=== PATIENT | male | born 1950 | race Caucasian/White ===

== ENCOUNTER 2019-03-20 11:12 | Emergency (ER) | payer SELFPAY ==
--- NOTE | 2019-03-20 11:29 | ER Document Report ---
ED Medical Screen (RME) - General Chief Complaint: Fall Injury Stated Complaint: RIB INJURY Time Seen by Provider: 03/20/19 11:22 Mode of Arrival: Medic Information source: Patient Notes: Patient is a 68-year-old male presented to the emergency department with bilateral anterior rib pain. Patient reports he fell multiple times yesterday after drinking excessive amounts of alcohol. Patient reports he has already started drinking alcohol today. He denies any neck pain. He does have an abrasion to his forehead he states this occurred when he fell yesterday. He reports pain in his ribs is worse with taking any deep breaths. He does have good air movement bilaterally. Order was placed for a cervical collar, patient refused this. Exam: Lung sounds clear and equal bilaterally. Abrasion noted over left eyebrow at the scalp line. No cervical vertebral tenderness. I have greeted and performed a rapid initial assessment of this patient. A comprehensive ED assessment and evaluation of the patient, analysis of test results and completion of the medical decision making process will be conducted by additional ED providers. I have specifically instructed the patient or family members with the patient to immediately return to any nursing staff should anything change in the patient's condition or with their chief complaint. This medical record was dictated with voice recognizing software. There may be grammatical, syntax errors that are unintended. TRAVEL OUTSIDE OF THE [place] IN LAST 30 DAYS: No - Related Data Allergies/Adverse Reactions: No Known Allergies Allergy (Verified 03/20/19 11:14) Past Medical History - Immunizations Immunizations up to date: Yes Hx Diphtheria, Pertussis, Tetanus Vaccination: Yes Physical Exam - Vital signs Vitals: Temp Pulse Resp BP Pulse Ox 97.6 F 87 16 126/96 H 96 03/20/19 11:14 03/20/19 11:14 03/20/19 11:14 03/20/19 11:14 03/20/19 11:14 Course - Vital Signs Vital signs: Temp Pulse Resp BP Pulse Ox 97.6 F 87 16 126/96 H 96 03/20/19 11:14 03/20/19 11:14 03/20/19 11:14 03/20/19 11:14 03/20/19 11:14
--- NOTE | 2019-03-20 12:20 | RADIOLOGY REPORT (SQ) ---
EXAM DESCRIPTION: RIBS BILATERAL W/PA CXR COMPLETED DATE/TIME: 03/20/2019 12:05 pm REASON FOR STUDY: multiple falls COMPARISON: None. TECHNIQUE: Frontal view of the chest and additional views of the right and left ribs acquired. NUMBER OF VIEWS: 9 view. LIMITATIONS: None. FINDINGS: FRONTAL CXR: No pneumothorax. No pleural effusion. No atelectasis or infiltrates. RIBS: There are mildly displaced subacute fractures of left ribs 6th through 8th laterally. There ar e chronic nondisplaced fracture of right ribs 9 and 10 posteriorly. There are subacute mildly displa nirali fractures of right ribs 5, 7, 8, and 9 laterally. OTHER: Degenerative changes are seen of the thoracic spine without wedge compression deformity. IMPRESSION: Subacute to chronic rib fractures bilaterally as detailed above. No clearly acute displ aced rib fracture is visualized. No pneumothorax. COMMENT: SITE OF TRAUMA/COMPLAINT MARKED/STAMP COMPLETED: No TECHNICAL DOCUMENTATION: JOB ID: [id number] [employer]- All Rights Reserved Reading location - IP/workstation name: [email or web address]
--- NOTE | 2019-03-20 12:29 | RADIOLOGY REPORT (SQ) ---
EXAM DESCRIPTION: CT HEAD WITHOUT COMPLETED DATE/TIME: 03/20/2019 12:19 pm REASON FOR STUDY: multiple falls COMPARISON: 03/26/2015 TECHNIQUE: Axial images acquired through the brain without intravenous contrast. Images reviewed wi th bone, brain and subdural windows. Additional sagittal and coronal reconstructions were generated. Images stored on PACS. All CT scanners at this facility use dose modulation, iterative reconstruction, and/or weight based d osing when appropriate to reduce radiation dose to as low as reasonably achievable (ALARA). [facility]: Dose Right [facility]: CareDose [facility]: Dose Right [facility]: Teradose 4D [facility]: [employer] RADIATION DOSE: CT Rad equipment meets quality standard of care and radiation dose reduction techniq ues were employed. CTDIvol: 53.2 mGy. DLP: 1017 mGy-cm.mGy. LIMITATIONS: None. FINDINGS: VENTRICLES: Prominent. CEREBRUM: No masses. No hemorrhage. No midline shift. Areas of low density in the white matter mos t likely due to chronic micro-vascular ischemic change. No evidence for acute infarction. CEREBELLUM: No masses. No hemorrhage. No alteration of density. No evidence for acute infarction. EXTRAAXIAL SPACES: Age-related involutional change. No fluid collections. No masses. ORBITS AND GLOBE: No intra- or extraconal masses. Normal contour of globe without masses. CALVARIUM: No fracture. PARANASAL SINUSES: Mild mucosal thickening is seen of the left maxillary sinus. The paranasal sinuse s and mastoid air cells are otherwise clear. SOFT TISSUES: No mass or hematoma. OTHER: No other significant finding. IMPRESSION: No evidence of calvarial injury or intracranial hemorrhage. Background of chronic micro vascular and age-related involutional changes. EVIDENCE OF ACUTE STROKE: NO. TECHNICAL DOCUMENTATION: JOB ID: [id number] Quality ID # [id number]: Final reports with documentation of one or more dose reduction techniques (e.g., Au tomated exposure control, adjustment of the mA and/or kV according to patient size, use of iterative reconstruction technique) 2010 [employer]- All Rights Reserved Reading location - IP/workstation name: [email or web address]
--- NOTE | 2019-03-20 12:48 | RADIOLOGY REPORT (SQ) ---
EXAM DESCRIPTION: CT CERVICAL SPINE WITHOUT COMPLETED DATE/TIME: 03/20/2019 12:19 pm REASON FOR STUDY: multiple falls COMPARISON: 03/26/2015 TECHNIQUE: Axial images acquired through the cervical spine without intravenous contrast. Images re viewed with lung, soft tissue and bone windows. Reconstructed coronal and sagittal MPR images review ed. Images stored on PACS. All CT scanners at this facility use dose modulation, iterative reconstruction, and/or weight based d osing when appropriate to reduce radiation dose to as low as reasonably achievable (ALARA). [facility]: Dose Right [facility]: CareDose [facility]: Dose Right [facility]: Teradose 4D [facility]: [employer] RADIATION DOSE: CT Rad equipment meets quality standard of care and radiation dose reduction techniq ues were employed. CTDIvol: 11.4 mGy. DLP: 258 mGy-cm. mGy. LIMITATIONS: None. FINDINGS: ALIGNMENT: Stable. MINERALIZATION: Osteopenia. VERTEBRAL BODIES: No fractures or dislocation. DISCS: Multilevel disc space narrowing with osteophytes. FACETS, LATERAL MASSES, POSTERIOR ELEMENTS: Facet arthropathy. No fractures. No dislocation. No ac william findings. HARDWARE: None in the spine. VISUALIZED RIBS: Healed fracture deformity of the left 2nd rib. LUNG APICES AND SOFT TISSUES: No significant or acute findings. OTHER: No other significant finding. IMPRESSION: No evidence of acute osseous injury. Background of multilevel spondylotic changes. Hea led fracture deformity of the left 2nd rib. TECHNICAL DOCUMENTATION: JOB ID: [id number] Quality ID # [id number]: Final reports with documentation of one or more dose reduction techniques (e.g., Au tomated exposure control, adjustment of the mA and/or kV according to patient size, use of iterative reconstruction technique) 2010 [employer]- All Rights Reserved Reading location - IP/workstation name: [email or web address]
--- NOTE | 2019-03-20 13:52 | ER Document Report ---
HPI - HPI Time Seen by Provider: 03/20/19 11:22 Pain Level: 3 Notes: Patient is a 68-year-old male with a history of alcohol abuse and tobacco abuse with frequent falls who presents complaining of continued anterior bilateral rib pain from a fall 2 days ago. Patient states that he fell on top of a chair of his. Patient states that he has been falling for 3 years and is otherwise feeling well. He has been eating and drinking without difficulty. He is able to urinate and have bowel movements normally. Patient states that he is able to ambulate without any instability at this time. He has no other concerns or complaints. Patient was seen at triage and had imaging ordered. Patient states that he has been drinking today. - ROS Systems Reviewed and Negative: Yes All other systems reviewed and negative - DERM Skin Color: Normal, [place] Past Medical History - General Information source: Patient - Social History Smoking Status: Current Every Day Smoker Frequency of alcohol use: Heavy Drug Abuse: None Family History: Reviewed & Not Pertinent Patient has suicidal ideation: No Patient has homicidal ideation: No Renal/ Medical History: Denies: Hx Peritoneal Dialysis - Immunizations Immunizations up to date: Yes Hx Diphtheria, Pertussis, Tetanus Vaccination: Yes Vertical Provider Document - CONSTITUTIONAL Agree With Documented VS: Yes Notes: PHYSICAL EXAMINATION: GENERAL: Well-appearing, well-nourished and in no acute distress. A&Ox4. Answers questions appropriately. HEAD: Atraumatic, normocephalic. Non-tender. No li sign EYES: Pupils equal round and reactive to light, extraocular movements intact, sclera anicteric, conjunctiva are normal. No raccoon eyes/entrapment ENT: EAC clear b/l. TM's intact b/l without erythema, fluid, or perforation. Nares patent and without discharge. oropharynx clear without exudates. No tonsilar hypertrophy or erythema. Moist mucous membranes. No sinus tenderness. No hemotympanum/CSF discharge. NECK: Normal range of motion, supple without lymphadenopathy. No rigidity. No midline tenderness. Chest: No flail chest. equal rise/fall. + tenderness ribs b/l (not new per pt). No ecchymosis. LUNGS: Breath sounds clear to auscultation bilaterally and equal. No wheezes rales or rhonchi. HEART: Regular rate and rhythm without murmurs, rubs, gallops. ABDOMEN: Soft, nontender, nondistended abdomen. No guarding, no rebound. No masses appreciated. Normal bowel sounds present. No CVA tenderness bilaterally. No ecchymosis noted. Musculoskeletal: Ext's b/l: FROM to passive/active. Strength 5+/5. No deficits noted. No bony tenderness of extremities. Back: FROM to passive/active. Strength 5+/5. No vertebral point tenderness, stepoffs, or deformities. No other bony tenderness or ecchymosis. SLR negative b/l. Extremities: No cyanosis, clubbing, or edema b/l. Peripheral pulses 2+. Capillary refill less than 2 seconds. NEUROLOGICAL: NIH 0. GCS 15. Cranial nerves grossly intact. Normal speech, normal gait. Normal sensory, motor exams. Reflexes 2+ b/l. SABINA's negative. Pronator drift negative. Heel/tinoco, finger/nose wnl. PSYCH: Normal mood, normal affect. SKIN: small skin tears noted. No laceration or active bleeding. - INFECTION CONTROL TRAVEL OUTSIDE OF THE [place] IN LAST 30 DAYS: No Course - Re-evaluation Re-evalutation: 03/20/19 13:51 Patient is an afebrile, well-hydrated, 68-year-old male who presents with rib contusions status post fall couple days ago. Patient has noted subacute and chronic rib fractures bilaterally on imaging. CT scan of the head/neck were otherwise unremarkable. No acute fractures were noted. Vitals are acceptable without significant tachycardia, tachypnea, or hypoxia. PE is otherwise unremarkable for any focal neurological deficits. Patient is nontoxic-appearing and is tolerating p.o. without difficulty. Low suspicion for any pneumothorax, pericarditis, dissection, acute abdomen, acute glaucoma, temporal arteritis, meningitis, intracranial hemorrhage, ischemic stroke, or acute/open fracture at this time. Patient is aware that his condition can change from initial presentation and that he needs to monitor symptoms closely for any acute changes. Patient states that he is feeling well and would like to go home. Patient is able to ambulate without any gait instability and is able to make decisions at this time for himself clearly without any significant intoxication behaviors noted. A cab voucher was obtained for the patient. Patient to recheck with his PCM in 2 to 3 days. Consider consult orthopedics. Return to the ED with any other worsening/concerning symptoms. Patient is in agreement. - Vital Signs Vital signs: Temp Pulse Resp BP Pulse Ox 97.6 F 87 16 126/96 H 96 03/20/19 11:14 03/20/19 11:14 03/20/19 11:14 03/20/19 11:14 03/20/19 11:14 Discharge - Discharge Clinical Impression: Rib pain Condition: Stable Disposition: HOME, SELF-CARE Additional Instructions: Rest, Ice, Compression, Elevation Stop drinking alcohol and stop smoking as able Tylenol/ibuprofen as needed Light stretches daily Strength exercises as able Moist heat and massage may help F/u with your PCP in 2-3 days for a recheck Consider consult(s) with Orthopedics/physical therapy for ongoing/worsening s ymptoms Return to the ED with any worsening symptoms and/or development of fever, headache, changes in behavior/mentation/vision/speech, chest pain, palpitations, syncope, shortness of breath, trouble breathing, abdominal pain, n/v/d, blood in stool/urine, loss of control of bowel/bladder, urinary retention, muscle weakness/paralysis, saddle anesthesia, numbness/tingling, or other worsening symptoms that are concerning to you. Forms: Elevated Blood Pressure, Smoking Cessation Education Referrals: [facility] [Provider Group] - Follow up as needed
[2019-03-20 14:12] VITALS: BP 117/82
== END 2019-03-20 14:12 | disposition home or self-care (01) ==
LOC: ER 11:12
DX: S00.81XA Abrasion of other part of head, initial encounter (principal); R07.81 Pleurodynia; W18.39XA Other fall on same level, initial encounter; F17.200 Nicotine dependence, unspecified, uncomplicated; Z91.81 History of falling
CPT/HCPCS: 70450; 71111; 72125; 99284

== ENCOUNTER 2020-04-26 15:39 | Emergency (ER) | payer SELFPAY ==
[2020-04-26 17:58] LABS: ABSOLUTE BASOPHILS # (AUTO) 0.1 10^3/uL (0.0-0.2); ABSOLUTE LYMPHOCYTES (AUTO) 1.4 10^3/uL (0.5-4.7); ABSOLUTE MONOCYTES (AUTO) 0.5 10^3/uL (0.1-1.4); ABSOLUTE NEUT (AUTO) 9.1 10^3/uL (1.7-8.2); BASOPHILS % (AUTO) 1.2 % (0-2); HEMATOCRIT 31.1 % (37.9-51.0); HEMOGLOBIN 10.4 g/dL (13.5-17.0); LYMPHOCYTES % (AUTO) 12.8 % (13-45); MEAN CORPUSCULAR HEMOGLOBIN 30.1 pg (27.0-33.4); MEAN CORPUSCULAR HGB CONC 33.4 g/dL (32.0-36.0); MEAN CORPUSCULAR VOLUME 90 fl (80-97); MONOCYTES % (AUTO) 4.4 % (3-13); PLATELET COUNT 407 10^3/uL (150-450); RED BLOOD COUNT 3.45 10^6/uL (4.35-5.55); RED CELL DISTRIBUTION WIDTH 22.3 % (11.5-14.0); SEGMENTED NEUTROPHILS % (AUTO) 81.6 % (42-78); TOTAL CELLS COUNTED % (AUTO) 100 %; WHITE BLOOD COUNT 11.2 10^3/uL (4.0-10.5)
--- NOTE | 2020-04-26 18:11 | RADIOLOGY REPORT (SQ) ---
EXAM DESCRIPTION: SHOULDER RIGHT 2 OR MORE VIEWS IMAGES COMPLETED DATE/TIME: 04/26/2020 6:02 pm REASON FOR STUDY: FALL COMPARISON: None. NUMBER OF VIEWS: Three views. TECHNIQUE: Internal rotation, external rotation, and Y view images acquired of the right shoulder. LIMITATIONS: None. FINDINGS: MINERALIZATION: Normal. BONES: No acute fracture. No worrisome bone lesions. JOINTS: No dislocation. VISUALIZED LUNGS AND RIBS: No pneumothorax. No rib fracture. SOFT TISSUES: No radiopaque foreign body. OTHER: No other significant finding. IMPRESSION: NEGATIVE STUDY OF THE RIGHT SHOULDER. NO RADIOGRAPHIC EVIDENCE OF ACUTE INJURY. TECHNICAL DOCUMENTATION: JOB ID: [id number] 2010 [employer]- All Rights Reserved Reading location - IP/workstation name: [email or web address]
--- NOTE | 2020-04-26 18:12 | RADIOLOGY REPORT (SQ) ---
EXAM DESCRIPTION: CHEST SINGLE VIEW IMAGES COMPLETED DATE/TIME: 04/26/2020 6:02 pm REASON FOR STUDY: FALL, RIB PAIN COMPARISON: 2010 EXAM PARAMETERS: NUMBER OF VIEWS: One view. TECHNIQUE: Single frontal radiographic view of the chest acquired. RADIATION DOSE: NA LIMITATIONS: None. FINDINGS: LUNGS AND PLEURA: There appears to be a slight scarring in the right upper lobe laterally. No acute infiltrate, effusion, or mass. MEDIASTINUM AND HILAR STRUCTURES: No masses. Contour normal. HEART AND VASCULAR STRUCTURES: Heart normal in size. Normal vasculature. BONES: No acute findings. HARDWARE: None in the chest. OTHER: No other significant finding. IMPRESSION: Limited right upper lobe scarring. No acute finding. TECHNICAL DOCUMENTATION: JOB ID: [id number] 2010 [employer]- All Rights Reserved Reading location - IP/workstation name: [email or web address]
[2020-04-26 18:26] LABS: ALBUMIN 3.8 g/dL (3.5-5.0); ALKALINE PHOSPHATASE 139 U/L (38-126); ANION GAP 15 (5-19); ASPARTATE AMINO TRANSFERASE 191 U/L (17-59); BILIRUBIN,DIRECT 0.3 mg/dL (0.0-0.4); BILIRUBIN,TOTAL 0.7 mg/dL (0.2-1.3); BLOOD UREA NITROGEN 6 mg/dL (7-20); CARBON DIOXIDE 26 mmol/L (22-30); CHLORIDE 91 mmol/L (98-107); CREATINE KINASE 187 U/L (55-170); POTASSIUM 3.4 mmol/L (3.6-5.0); TOTAL PROTEIN 7.4 g/dL (6.3-8.2)
[2020-04-26 18:31] LABS: GLUCOSE 54 mg/dL (75-110)
[2020-04-26 18:34] LABS: CREATINE KINASE MB 1.79 ng/mL (<4.55); TROPONIN I < 0.012 ng/mL
[2020-04-26] MEDS ORDERED: DEXTROSE 50%-WATER 25 GM/50 ML DISP.SYRIN IV ONE ×2 (18:35→18:36)
[2020-04-26 18:43] LABS: APPEARANCE,URINE CLEAR; BILIRUBIN,URINE NEGATIVE (NEGATIVE); COLOR,URINE YELLOW; GLUCOSE, URINE NEGATIVE (NEGATIVE); KETONES,URINE 20 mg/dL (NEGATIVE); LEUKOCYTE ESTERASE,URINE TRACE (NEGATIVE); NITRITE,URINE POSITIVE (NEGATIVE); PROTEIN,URINE 30 mg/dL (NEGATIVE); URINE SPECIFIC GRAVITY 1.006; UROBILINOGEN,URINE NEGATIVE mg/dL (<2.0)
--- NOTE | 2020-04-26 19:33 | ER Document Report ---
ED Fall - General Mode of Arrival: Wheelchair Information source: Patient TRAVEL OUTSIDE OF THE [place] IN LAST 30 DAYS: No - HPI Occurred: Just prior to arrival Where: Home, Indoors Context: Tripped Associated symptoms: None Location of injury/pain: Shoulder - Right shoulder, Other - Right ribs Quality of pain: Sharp Severity: Moderate Pain Level: 3 - Right ribs <MACK LYNCH - Last Filed: 04/26/20 21:55> <ALTAGRACIAKIN Mehreen TIDWELL - Last Filed: 04/27/20 19:16> - General Chief Complaint: Fall Stated Complaint: COUGH,DIARRHEA,WEAKNESS Notes: 70-year-old male presented to ED for pain to the right shoulder and right ribs after he fell this morning. He states he also had a diarrhea stool. He was wearing a brief. He states sometimes he is incontinent of urine and stool. He states he lives by himself. He states his brother and sister brought him to the emergency room. When asked why he fell he says he does not know why he fell. When asked him how much he smoked he said he smoked a pack a day and when asked him how much he drank he said he drank a pint of liquor a day but it only had about 4 shots today. I did run a cholesterol level which was 170.. He is alert oriented respirations regular and unlabored. He does have pain to palpation to the right mid axillary line lower little lower than the breast line. He does have full range of motion to the shoulder but squints when he moves the shoulder due to his rib pain. He states the way it hurts him a lot more than his shoulder. He did have a shoulder and chest x-ray before I examined him both of which were read as negative but there is a definite rib fracture on the x-ray. (MACK LYNCH) - Related data Allergies/Adverse Reactions: No Known Allergies Allergy (Verified 03/20/19 11:14) Past Medical History - General Information source: Patient - Social History Smoking Status: Current Every Day Smoker Cigarette use (# per day): Yes - Pack per day Smoking Education Provided: Yes - 3 minutes Frequency of alcohol use: Heavy - Pint of liquor a day Drug Abuse: None Lives with: Alone Family History: Reviewed & Not Pertinent Patient has suicidal ideation: No Patient has homicidal ideation: No - Past Medical History Cardiac Medical History: Reports: Hx Heart Attack, Hx Hypercholesterolemia, Hx Hypertension Pulmonary Medical History: Reports: None EENT Medical History: Reports: None Neurological Medical History: Reports: None Endocrine Medical History: Reports: None Renal/ Medical History: Reports: None Malignancy Medical History: Reports None GI Medical History: Reports: None Musculoskeletal Medical History: Reports Hx Arthritis, Reports Hx Musculoskeletal Trauma Skin Medical History: Reports None Psychiatric Medical History: Reports: None Traumatic Medical History: Reports: Hx Fractures - Finger Infectious Medical History: Reports: None Surgical Hx: Negative Past Surgical History: Reports: None - Immunizations Immunizations up to date: Yes Hx Diphtheria, Pertussis, Tetanus Vaccination: Yes <MACK LYNCH - Last Filed: 04/26/20 21:55> Review of Systems - Review of Systems Constitutional: No symptoms reported EENT: No symptoms reported Cardiovascular: No symptoms reported Respiratory: No symptoms reported Gastrointestinal: No symptoms reported Genitourinary: No symptoms reported Male Genitourinary: No symptoms reported Musculoskeletal: Joint pain - Right shoulder pain, Other Skin: No symptoms reported Hematologic/Lymphatic: No symptoms reported Neurological/Psychological: No symptoms reported -: Yes All other systems reviewed and negative <MACK LYNCH - Last Filed: 04/26/20 21:55> Physical Exam - Vital signs Interpretation: Normal - General General appearance: Appears well, Alert - HEENT Head: Normocephalic, Atraumatic Eyes: Normal Pupils: PERRL - Respiratory Respiratory status: No respiratory distress Chest status: Tender, Pain on movement, Pain with cough, Pain with deep breathing Breath sounds: Normal Chest palpation: Normal - Cardiovascular Rhythm: Regular Heart sounds: Normal auscultation Murmur: No - Abdominal Inspection: Normal Distension: No distension Bowel sounds: Normal Tenderness: Nontender Organomegaly: No organomegaly - Back Back: Normal, Nontender - Extremities General upper extremity: Normal inspection, Nontender, Normal color, Normal ROM, Normal temperature General lower extremity: Normal inspection, Nontender, Normal color, Normal ROM, Normal temperature, Normal weight bearing. No: Franklin's sign - Neurological Neuro grossly intact: Yes Cognition: Normal Orientation: AAOx4 [place] Coma Scale Eye Opening: Spontaneous [place] Coma Scale Verbal: Oriented [place] Coma Scale Motor: Obeys Commands [place] Coma Scale Total: 15 Speech: Normal Motor strength normal: LUE, RUE, LLE, RLE Sensory: Normal - Psychological Associated symptoms: Normal affect, Normal mood - Skin Skin Temperature: Warm Skin Moisture: Dry Skin Color: Normal <MACK LYNCH - Last Filed: 04/26/20 21:55> - Vital signs Vitals: Temp Pulse Resp BP Pulse Ox 98.1 F 80 16 124/72 95 04/26/20 16:41 04/26/20 16:41 04/26/20 16:41 04/26/20 16:41 04/26/20 16:41 Course - Laboratory Result Diagrams: 04/26/20 17:35 04/26/20 17:35 <MACK LYNCH - Last Filed: 04/26/20 21:55> - Laboratory Result Diagrams: 04/26/20 17:35 04/26/20 17:35 <KIN FRIAS JR - Last Filed: 04/27/20 19:16> - Vital Signs Vital signs: Temp Pulse Resp BP Pulse Ox 98.2 F 82 16 120/82 98 04/27/20 17:59 04/27/20 17:59 04/27/20 17:59 04/27/20 17:59 04/27/20 17:59 - Laboratory Laboratory results interpreted by me: 04/26/20 04/26/20 04/26/20 17:35 17:35 18:09 WBC 11.2 H RBC 3.45 L Hgb 10.4 L Hct 31.1 L RDW 22.3 H Lymph % (Auto) 12.8 L Absolute Neuts (auto) 9.1 H Seg Neutrophils % 81.6 H Sodium 132.1 L Potassium 3.4 L Chloride 91 L BUN 6 L Glucose 54 L Calcium 8.0 L AST 191 H Alkaline Phosphatase 139 H Creatine Kinase 187 H Urine Protein 30 H Urine Ketones 20 H Urine Blood SMALL H Urine Nitrite POSITIVE H Ur Leukocyte Esterase TRACE H 04/27/20 16:00 WBC RBC Hgb Hct RDW Lymph % (Auto) Absolute Neuts (auto) Seg Neutrophils % Sodium Potassium Chloride BUN Glucose Calcium AST Alkaline Phosphatase Creatine Kinase Urine Protein 30 H Urine Ketones 80 H Urine Blood Urine Nitrite Ur Leukocyte Esterase SMALL H Critical Care Note <KIN FRIAS JR - Last Filed: 04/27/20 19:16> - Critical Care Note Comments: Patient was seen just prior to discharge at 1900 by myself Danielle PEÑA who advises he should decrease alcohol in small amounts on a daily basis. Sister was worried about him ambulating or walking but patient uses at home a wheelchair. He has been ambulating here according to nursing staff. He has poor appetite and eaten very little of his meals. (KIN FRIAS JR) Discharge <MACK LYNCH - Last Filed: 04/26/20 21:55> <KIN FRIAS JR - Last Filed: 04/27/20 19:16> - Discharge Clinical Impression: right 5th rib fracture, Alcohol abuse Shoulder contusion Qualifiers: Encounter type: initial encounter Laterality: right Qualified Code(s): S40.011A - Contusion of right shoulder, initial encounter UTI (urinary tract infection) Qualifiers: Urinary tract infection type: acute cystitis Hematuria presence: with hematuria Qualified Code(s): N30.01 - Acute cystitis with hematuria Alcohol intoxication Qualifiers: Complication of substance-induced condition: uncomplicated Qualified Code(s): F10.920 - Alcohol use, unspecified with intoxication, uncomplicated Condition: Good Disposition: HOME, SELF-CARE Instructions: Cephalexin ([facility]) Additional Instructions: Follow-up with orthopedics doctor about your broken ribs or with your personal doctor and take medicines as directed. May use [id number] Voltaren gel for pain around where your broken rib is at. Take antibiotics for your UTI. Encourage fluids and avoid alcohol if possible. Stop any smoking or inhalation devices. Prescriptions: Cephalexin Monohydrate [Keflex 500 mg Capsule] 500 mg PO BID 5 Days #20 capsule
--- NOTE | 2020-04-26 19:52 | RADIOLOGY REPORT (SQ) ---
EXAM DESCRIPTION: RIBS RIGHT W/O PA CHEST IMAGES COMPLETED DATE/TIME: 04/26/2020 7:41 pm REASON FOR STUDY: pain post fall COMPARISON: None. NUMBER OF VIEWS: Four views. TECHNIQUE: Images acquired of the right ribs in the area of focal concern. LIMITATIONS: None. FINDINGS: RIBS: There appear to be some old rib fractures. No acute displaced rib fracture is seen. LUNGS: Limited exam. No obvious pneumothorax. No pleural effusion. OTHER: No other significant finding. IMPRESSION: NO ACUTE DISPLACED RIB FRACTURE. COMMENT: SITE OF TRAUMA/COMPLAINT MARKED/STAMP COMPLETED: Yes TECHNICAL DOCUMENTATION: JOB ID: [id number] 2010 [employer]- All Rights Reserved Reading location - IP/workstation name: [email or web address]
--- NOTE | 2020-04-26 20:07 | EKG REPORT ---
SEVERITY:- BORDERLINE ECG - SINUS RHYTHM LOW VOLTAGE IN FRONTAL LEADS BORDERLINE T ABNORMALITIES, DIFFUSE LEADS : Confirmed by: Love Faulkner MD 26-Apr-2020 20:05:48
[2020-04-26] MEDS ORDERED: CEPHALEXIN 500 MG CAPSULE PO ONE (21:53)
[2020-04-26] MEDS ORDERED: ACETAMINOPHEN 325 MG TABLET PO PRN (21:53)
[2020-04-27] MEDS: CEPHALEXIN 500 MG CAPSULE PO SCH ×3 (10:07→18:35)
[2020-04-27 16:34] LABS: APPEARANCE,URINE CLEAR; BILIRUBIN,URINE NEGATIVE (NEGATIVE); COLOR,URINE YELLOW; GLUCOSE, URINE NEGATIVE (NEGATIVE); KETONES,URINE 80 mg/dL (NEGATIVE); LEUKOCYTE ESTERASE,URINE SMALL (NEGATIVE); NITRITE,URINE NEGATIVE (NEGATIVE); PROTEIN,URINE 30 mg/dL (NEGATIVE); URINE SPECIFIC GRAVITY 1.015; UROBILINOGEN,URINE NEGATIVE mg/dL (<2.0)
[2020-04-27 18:00] VITALS: BP 120/82
== END 2020-04-27 20:00 | disposition home or self-care (01) ==
LOC: ER 15:39
DX: S22.31XA Fracture of one rib, right side, initial encounter for closed fracture (principal); S40.011A Contusion of right shoulder, initial encounter; N30.01 Acute cystitis with hematuria; R05 Cough; R19.7 Diarrhea, unspecified; R53.1 Weakness; M25.511 Pain in right shoulder; R07.81 Pleurodynia; F10.920 Alcohol use, unspecified with intoxication, uncomplicated; W19.XXXA Unspecified fall, initial encounter; F17.210 Nicotine dependence, cigarettes, uncomplicated; Z20.828 Contact with and (suspected) exposure to other viral communicable diseases
CPT/HCPCS: 93005; 99284; 96374; 36415; 87086; 82553; 82962; 80307; 82550; 85025; 87635; 87088; 80053; 81001; 84484; 87186; 71045; 71100; 73030; 93010; J3490; C9803